=== PATIENT | male | born 1985 | race Caucasian/White ===

== ENCOUNTER 2021-04-15 12:25 | Emergency (ER) | payer SELFPAY ==
[~2021-04-15] VITALS: Ht 182 cm; Wt 82.0 kg
[2021-04-15 12:46] LABS: BASOPHILS % (AUTO) 1 % (0-10); EOSINOPHILS # (AUTO) 0.1 10^3/uL (0.0-0.3); EOSINOPHILS % (AUTO) 1 % (0-10); HEMATOCRIT 46 % (40-54); HEMOGLOBIN 15.7 g/dL (13.3-17.7); LYMPHOCYTES # (AUTO) 1.3 10^3/uL (1.0-4.0); LYMPHOCYTES % (AUTO) 30 % (12-44); MEAN CORPUSCULAR HEMOGLOBIN 32 pg (25-34); MEAN CORPUSCULAR HGB CONC 34 g/dL (32-36); MEAN CORPUSCULAR VOLUME 95 fL (80-99); MEAN PLATELET VOLUME 9.4 fL (9.0-12.2); MONOCYTES # (AUTO) 0.6 10^3/uL (0.0-1.0); MONOCYTES % (AUTO) 13 % (0-12); NEUTROPHILS # (AUTO) 2.4 10^3/uL (1.8-7.8); NEUTROPHILS % (AUTO) 55 % (42-75); PLATELET COUNT 181 10^3/uL (130-400); WHITE BLOOD COUNT 4.3 10^3/uL (4.3-11.0)
[2021-04-15 12:57] LABS: ALBUMIN 4.3 GM/DL (3.2-4.5)
[2021-04-15 12:59] LABS: CALCIUM 9.2 MG/DL (8.5-10.1)
[2021-04-15] MEDS ORDERED: HOLD METFORMIN - RECEIVED CONTRAST 20 ML VIAL IV SCH (13:00)
[2021-04-15] MEDS ORDERED: IOHEXOL 350 MG/ML 100 ML (OMNIPAQUE 350) VIAL IV ONE (13:00)
[2021-04-15] MEDS ORDERED: NS 100 ML (IVPB) BAG IV ONE (13:00)
[2021-04-15 13:02] LABS: BILIRUBIN,TOTAL 0.7 MG/DL (0.1-1.0)
[2021-04-15 13:04] LABS: CREATININE SERUM 0.91 MG/DL (0.60-1.30)
--- NOTE | 2021-04-15 13:15 | ED Abdominal Pain ---
General Chief Complaint: Abdominal/GI Problems Stated Complaint: BULGE IN ABD/POSS HERNIA/DISCOLORATION ON ABD Source of Information: Patient Exam Limitations: No Limitations (CARLOZ MEZA APRN) History of Present Illness Date Seen by Provider: Apr 15, 2021 Time Seen by Provider: 12:30 Initial Comments To ER with a bulge in the right lower abdomen intermittently. He has been able to push this back in on his own. He has had some slight trouble with passing gas recently but has been having normal bowel movements and is without vomiting. Timing/Duration: 1-2 Days Severity/Quality: Moderate Location: RLQ Radiation: No Radiation Activities at Onset: None Associated Symptoms: Denies Symptoms (CARLOZ MEZA APRN) Allergies and Home Medications Allergies Coded Allergies: Penicillins (Verified Allergy, Unknown, 04/23/15) Patient Home Medication List Home Medication List Reviewed: Yes (CARLOZ MEZA APRN) Review of Systems Review of Systems Constitutional: see HPI EENTM: See HPI Respiratory: No Symptoms Reported Gastrointestinal: See HPI Genitourinary: No Symptoms Reported Musculoskeletal: no symptoms reported Skin: no symptoms reported Psychiatric/Neurological: No Symptoms Reported Endocrine: No Symptoms Reported Hematologic/Lymphatic: No Symptoms Reported (Yes) (CARLOZ MEZA APRN) Past Cwoctwg-Jxbkhf-Uwaezr Hx Patient Social History Tobacco Use?: Yes Tobacco type used: Cigarettes Smoking Status: Current Everyday Smoker Substance use?: No Alcohol Use?: No Pt feels they are or have been: No (CARLOZ MEZA APRN) Seasonal Allergies Seasonal Allergies: No (CARLOZ MEZA APRN) Past Medical History Adenoidectomy, Tonsillectomy Reproductive Disorders: No (CARLOZ MEZA APRN) Physical Exam Vital Signs Vital Signs - First Documented 04/15/21 12:33 Temp 36.9 Pulse 87 Resp 18 B/P (MAP) 129/85 (100) Pulse Ox 99 (CARMELA,GATITO K DO) Vital Signs Capillary Refill : (CARLOZ MEZA APRN) Height/Weight/BMI Height: 5'11" Weight: 145lbs. oz. 65.354530pk; BMI Method: General Appearance: WD/WN, no apparent distress Respiratory: no respiratory distress, no accessory muscle use Gastrointestinal: normal bowel sounds, soft, spleenomegaly (no palpable bulge) Extremities: normal range of motion, non-tender Neurologic/Psychiatric: alert, normal mood/affect, oriented x 3 Skin: normal color, warm/dry (CARLOZ MEZA APRN) Progress/Results/Core Measures Results/Orders Lab Results Laboratory Tests Test 04/15/21 12:38 Range/Units White Blood Count 4.3 4.3-11.0 10^3/uL Red Blood Count 4.89 4.30-5.52 10^6/uL Hemoglobin 15.7 13.3-17.7 g/dL Hematocrit 46 40-54 % Mean Corpuscular Volume 95 80-99 fL Mean Corpuscular Hemoglobin 32 25-34 pg Mean Corpuscular Hemoglobin Concent 34 32-36 g/dL Red Cell Distribution Width 12.5 10.0-14.5 % Platelet Count 181 130-400 10^3/uL Mean Platelet Volume 9.4 9.0-12.2 fL Immature Granulocyte % (Auto) 0 % Neutrophils (%) (Auto) 55 42-75 % Lymphocytes (%) (Auto) 30 12-44 % Monocytes (%) (Auto) 13 H 0-12 % Eosinophils (%) (Auto) 1 0-10 % Basophils (%) (Auto) 1 0-10 % Neutrophils # (Auto) 2.4 1.8-7.8 10^3/uL Lymphocytes # (Auto) 1.3 1.0-4.0 10^3/uL Monocytes # (Auto) 0.6 0.0-1.0 10^3/uL Eosinophils # (Auto) 0.1 0.0-0.3 10^3/uL Basophils # (Auto) 0.0 0.0-0.1 10^3/uL Immature Granulocyte # (Auto) 0.0 0.0-0.1 10^3/uL Sodium Level 138 135-145 MMOL/L Potassium Level 4.0 3.6-5.0 MMOL/L Chloride Level 106 98-107 MMOL/L Carbon Dioxide Level 24 21-32 MMOL/L Anion Gap 8 5-14 MMOL/L Blood Urea Nitrogen 17 7-18 MG/DL Creatinine 0.91 0.60-1.30 MG/DL Estimat Glomerular Filtration Rate 95 BUN/Creatinine Ratio 19 Glucose Level 72 70-105 MG/DL Calcium Level 9.2 8.5-10.1 MG/DL Corrected Calcium 9.0 8.5-10.1 MG/DL Total Bilirubin 0.7 0.1-1.0 MG/DL Aspartate Amino Transf (AST/SGOT) 42 H 5-34 U/L Alanine Aminotransferase (ALT/SGPT) 55 0-55 U/L Alkaline Phosphatase 112 40-136 U/L Total Protein 7.0 6.4-8.2 GM/DL Albumin 4.3 3.2-4.5 GM/DL (GATITO CASEY DO) Vital Signs/I&O 04/15/21 04/15/21 12:33 13:19 Temp 36.9 36.9 Pulse 87 87 Resp 18 18 B/P (MAP) 129/85 (100) 129/85 Pulse Ox 99 99 (GATITO CASEY DO) Departure Communication (Admissions) NAME: KAYLEN DENSON [facility] REC#: [id number] PT STATUS: REG ER : 1985 PHYSICIAN: CARLOZ MEZA APRN ADMIT DATE: 04/15/21/ER Draft Date of Exam:04/15/21 CT ABDOMEN/PELVIS W Procedure: CT abdomen and pelvis with contrast. Technique: Multiple contiguous axial images were obtained through the abdomen and pelvis after administration of intravenous contrast. Auto Exposure Controls were utilized during the CT exam to meet ALARA standards for radiation dose reduction. All CT scans use one or more of the following dose optimizing techniques: automated exposure control, MA and/or KvP adjustment based on patient size and exam type or iterative reconstruction. Indication: Right lower quadrant pain with palpable lump. Comparison: None. Discussion: The lung bases are well-aerated. Normal heart size. No pleural or pericardial fluid. The liver, gallbladder, pancreas, stomach, spleen, and adrenal glands are unremarkable. No renal stone, mass, hydronephrosis. The aorta is normal in caliber. Urinary bladder and prostate are unremarkable. The large and small bowel loops appear within normal limits. The appendix is normal. No constipation or obstruction. No hernia identified. No osseous abnormality. Impression: 1. No acute abnormality within the abdomen or pelvis. No hernia. Dictated on workstation # [id number] Dict: 04/15/21 1303 Trans: 04/15/[address] [facility] [id number] Interpreted by: CARLOS MCNULTY MD Electronically signed by: (CARLOZ MEZA APRN) Impression Primary Impression: Inguinal hernia Disposition: 01 HOME, SELF-CARE Condition: Stable Departure-Patient Inst. Decision time for Depature: 13:13 (CARLOZ MEZA APRN) Referrals: REBECA HAYNES BRETT D DO KIDO, TAKAAKI MD NO,LOCAL PHYSICIAN (PCP) Primary Care Physician Patient Instructions: Inguinal and Femoral (Groin) Hernias Add. Discharge Instructions: 1. Call one of the surgeons of your choosing tomorrow to make an appointment to be seen for follow-up, this will need surgical repair. All discharge instructions reviewed with patient and/or family. Voiced understanding. ATTENDING PHYSICIAN NOTE: I WAS PHYSICALLY PRESENT ER PHYSICIAN WHEN THIS PATIENT WAS IN ER, BUT I WAS NOT INVOLVED IN DECISION MAKING OR ANY CARE OF THIS PATIENT (GATITO CASEY DO) CARLOZ MEZA APRN Apr 15, 2021 13:15 GATITO CASEY DO Apr 17, 2021 14:54
[2021-04-15 13:19] VITALS: BP 129/85
== END 2021-04-15 13:25 | disposition home or self-care (01) ==
LOC: EDUNIT# 12:25 → ER 12:29
DX: K40.90 Unilateral inguinal hernia, without obstruction or gangrene, not specified as recurrent (principal); F17.210 Nicotine dependence, cigarettes, uncomplicated
CPT/HCPCS: 36415; 74177; 80053; 85025

== ENCOUNTER 2021-04-16 17:45 | Emergency (ER) | payer SELFPAY ==
[~2021-04-16] VITALS: Ht 182 cm; Wt 81.6 kg
--- NOTE | 2021-04-16 18:19 | ED General ---
General Chief Complaint: Dizziness/Syncope Stated Complaint: DIZZY / AMS Source of Information: Patient Exam Limitations: No Limitations History of Present Illness Date Seen by Provider: Apr 16, 2021 Time Seen by Provider: 18:06 Initial Comments This is a well-appearing 35-year-old male presented to the ER via POV with complaints of feeling dizzy and tingling in his face approximate 30 minutes prior to arrival. States that he had a prior episode similar approximately weeks ago when he presented to the emergency department at [facility]. States that he was told his symptoms are caused from a varicocele in his groin. He states his symptoms are completely resolved at this time however since this is the second episode he wanted to have further evaluation. He is concerned that the inguinal hernia he has is cutting off circulation to his brain. Allergies and Home Medications Allergies Coded Allergies: Penicillins (Verified Allergy, Unknown, 04/23/15) Past Hfkgxwu-Mcqjaz-Zsbhid Hx Seasonal Allergies Seasonal Allergies: No Past Medical History Adenoidectomy, Tonsillectomy Reproductive Disorders: No Physical Exam Vital Signs Vital Signs - First Documented 04/16/21 18:00 Temp 36.7 Pulse 77 Resp 16 B/P (MAP) 110/81 (91) Pulse Ox 99 Capillary Refill : Height, Weight, BMI Height: 5'11" Weight: 145lbs. oz. 65.017524px; 24.00 BMI Method: Progress/Results/Core Measures Suspected Sepsis SIRS Temperature: Pulse: Respiratory Rate: Laboratory Tests 04/16/21 18:17: White Blood Count 4.9 Blood Pressure / Mean: Laboratory Tests 04/16/21 18:17: Creatinine 1.23, Platelet Count 210, Total Bilirubin 0.8 Results/Orders Lab Results Laboratory Tests Test 04/16/21 18:17 04/16/21 18:23 04/16/21 18:26 Range/Units White Blood Count 4.9 4.3-11.0 10^3/uL Red Blood Count 4.85 4.30-5.52 10^6/uL Hemoglobin 15.4 13.3-17.7 g/dL Hematocrit 45 40-54 % Mean Corpuscular Volume 93 80-99 fL Mean Corpuscular Hemoglobin 32 25-34 pg Mean Corpuscular Hemoglobin Concent 34 32-36 g/dL Red Cell Distribution Width 12.5 10.0-14.5 % Platelet Count 210 130-400 10^3/uL Mean Platelet Volume 9.7 9.0-12.2 fL Immature Granulocyte % (Auto) 0 % Neutrophils (%) (Auto) 58 42-75 % Lymphocytes (%) (Auto) 31 12-44 % Monocytes (%) (Auto) 10 0-12 % Eosinophils (%) (Auto) 1 0-10 % Basophils (%) (Auto) 1 0-10 % Neutrophils # (Auto) 2.9 1.8-7.8 10^3/uL Lymphocytes # (Auto) 1.5 1.0-4.0 10^3/uL Monocytes # (Auto) 0.5 0.0-1.0 10^3/uL Eosinophils # (Auto) 0.0 0.0-0.3 10^3/uL Basophils # (Auto) 0.0 0.0-0.1 10^3/uL Immature Granulocyte # (Auto) 0.0 0.0-0.1 10^3/uL Sodium Level 135 135-145 MMOL/L Potassium Level 4.2 3.6-5.0 MMOL/L Chloride Level 103 98-107 MMOL/L Carbon Dioxide Level 25 21-32 MMOL/L Anion Gap 7 5-14 MMOL/L Blood Urea Nitrogen 17 7-18 MG/DL Creatinine 1.23 0.60-1.30 MG/DL Estimat Glomerular Filtration Rate 67 BUN/Creatinine Ratio 14 Glucose Level 92 70-105 MG/DL Calcium Level 9.6 8.5-10.1 MG/DL Corrected Calcium 9.2 8.5-10.1 MG/DL Total Bilirubin 0.8 0.1-1.0 MG/DL Aspartate Amino Transf (AST/SGOT) 29 5-34 U/L Alanine Aminotransferase (ALT/SGPT) 55 0-55 U/L Alkaline Phosphatase 109 40-136 U/L Total Protein 7.3 6.4-8.2 GM/DL Albumin 4.5 3.2-4.5 GM/DL Urine Color YELLOW Urine Clarity CLEAR Urine pH 7.0 5-9 Urine Specific [place] 1.010 L 1.016-1.022 Urine Protein NEGATIVE NEGATIVE Urine Glucose (UA) NEGATIVE NEGATIVE Urine Ketones NEGATIVE NEGATIVE Urine Nitrite NEGATIVE NEGATIVE Urine Bilirubin NEGATIVE NEGATIVE Urine Urobilinogen 0.2 < = 1.0 MG/DL Urine Leukocyte Esterase NEGATIVE NEGATIVE Urine RBC (Auto) NEGATIVE NEGATIVE Urine RBC NONE /HPF Urine WBC NONE /HPF Urine Crystals NONE /LPF Urine Bacteria NEGATIVE /HPF Urine Casts NONE /LPF Urine Mucus NEGATIVE /LPF Urine Culture Indicated NO Urine Opiates Screen NEGATIVE NEGATIVE Urine Oxycodone Screen NEGATIVE NEGATIVE Urine Methadone Screen NEGATIVE NEGATIVE Urine Propoxyphene Screen NEGATIVE NEGATIVE Urine Barbiturates Screen NEGATIVE NEGATIVE Ur Tricyclic Antidepressants Screen NEGATIVE NEGATIVE Urine Phencyclidine Screen NEGATIVE NEGATIVE Urine Amphetamines Screen NEGATIVE NEGATIVE Urine Methamphetamines Screen NEGATIVE NEGATIVE Urine Benzodiazepines Screen NEGATIVE NEGATIVE Urine Cocaine Screen NEGATIVE NEGATIVE Urine Cannabinoids Screen POSITIVE H NEGATIVE Influenza Type A (RT-PCR) Not Detected Not Detecte Influenza Type B (RT-PCR) Not Detected Not Detecte SARS-CoV-2 RNA (RT-PCR) Not Detected Not Detecte My Orders Orders - JACQUELIN CORBETT REELER OPERATOR Drug Screen Stat (Urine) (04/16/21 17:54) Ua Culture If Indicated (04/16/21 17:54) Covid 19 Inhouse Test (04/16/21 18:10) Influenza A And B By Pcr (04/16/21 18:10) Cbc With Automated Diff (04/16/21 18:14) Comprehensive Metabolic Panel (04/16/21 18:14) Vital Signs/I&O 04/16/21 18:00 Temp 36.7 Pulse 77 Resp 16 B/P (MAP) 110/81 (91) Pulse Ox 99 Capillary Refill : Departure Impression Primary Impression: Dizziness Disposition: 01 HOME, SELF-CARE Condition: Improved Departure-Patient Inst. Decision time for Depature: 19:39 Referrals: NO,LOCAL PHYSICIAN (PCP/Family) Primary Care Physician Patient Instructions: Vertigo (a Type of Dizziness) (DC) Add. Discharge Instructions: Plan: 1. Establish with primary care provider of your choice. 2. If you feel dizzy, sit down immediately to prevent fainting. 3. Drink plenty of fluids. Drink enough fluids to keep your urine a pale yellow. 4. Return to ER for any new, concerning, or worsening symptoms. All discharge instructions reviewed with patient and/or family. Voiced understanding. JACQUELIN CORBETT REELER OPERATOR Apr 16, 2021 18:19
[2021-04-16 18:30] LABS: BASOPHILS % (AUTO) 1 % (0-10); EOSINOPHILS % (AUTO) 1 % (0-10); HEMATOCRIT 45 % (40-54); HEMOGLOBIN 15.4 g/dL (13.3-17.7); LYMPHOCYTES # (AUTO) 1.5 10^3/uL (1.0-4.0); LYMPHOCYTES % (AUTO) 31 % (12-44); MEAN CORPUSCULAR HEMOGLOBIN 32 pg (25-34); MEAN CORPUSCULAR HGB CONC 34 g/dL (32-36); MEAN CORPUSCULAR VOLUME 93 fL (80-99); MEAN PLATELET VOLUME 9.7 fL (9.0-12.2); MONOCYTES # (AUTO) 0.5 10^3/uL (0.0-1.0); MONOCYTES % (AUTO) 10 % (0-12); NEUTROPHILS # (AUTO) 2.9 10^3/uL (1.8-7.8); NEUTROPHILS % (AUTO) 58 % (42-75); PLATELET COUNT 210 10^3/uL (130-400); WHITE BLOOD COUNT 4.9 10^3/uL (4.3-11.0)
[2021-04-16 18:33] LABS: ALBUMIN 4.5 GM/DL (3.2-4.5)
[2021-04-16 18:34] LABS: POTASSIUM 4.2 MMOL/L (3.6-5.0)
[2021-04-16 18:34] LABS: BILIRUBIN,URINE NEGATIVE (NEGATIVE); CLARITY,URINE CLEAR; COLOR,URINE YELLOW; GLUCOSE, URINE (UA) NEGATIVE (NEGATIVE); KETONES,URINE NEGATIVE (NEGATIVE); LEUKOCYTE ESTERASE ,URINE NEGATIVE (NEGATIVE); NITRITE,URINE NEGATIVE (NEGATIVE); PROTEIN,URINE NEGATIVE (NEGATIVE)
[2021-04-16 18:35] LABS: CALCIUM 9.6 MG/DL (8.5-10.1)
[2021-04-16 18:36] LABS: TOTAL PROTEIN 7.3 GM/DL (6.4-8.2)
[2021-04-16 18:38] LABS: BILIRUBIN,TOTAL 0.8 MG/DL (0.1-1.0)
[2021-04-16 18:40] LABS: CREATININE SERUM 1.23 MG/DL (0.60-1.30)
[2021-04-16 18:49] LABS: AMPHETAMINE SCREEN, URINE NEGATIVE (NEGATIVE); BARBITURATE SCREEN URINE NEGATIVE (NEGATIVE); BENZODIAZEPINES SCREEN URINE NEGATIVE (NEGATIVE); CANNABINOID SCREEN, URINE POSITIVE (NEGATIVE); COCAINE SCREEN URINE NEGATIVE (NEGATIVE); METHADONE STAT NEGATIVE (NEGATIVE); METHAMPHETAMINE SCREEN URINE S NEGATIVE (NEGATIVE); OPIATE SCREEN URINE NEGATIVE (NEGATIVE); OXYCODONE STAT NEGATIVE (NEGATIVE); PROPOXYPHENE STAT NEGATIVE (NEGATIVE); TRICYCLIC ANTIDEPRESSANTS SCRE NEGATIVE (NEGATIVE)
[2021-04-16 18:55] LABS: BACTERIA,URINE NEGATIVE /HPF
[2021-04-16 20:01] VITALS: BP 120/88
== END 2021-04-16 20:01 | disposition home or self-care (01) ==
LOC: EDUNIT# 17:45 → ER 17:46
DX: R42 Dizziness and giddiness (principal); Z20.822 Contact with and (suspected) exposure to COVID-19
CPT/HCPCS: 36415; 80053; 80306; 81000; 85025; 87636; 93005

== ENCOUNTER 2021-06-15 05:36 | Outpatient (CLI) | payer OTHER ==
[~2021-06-15] VITALS: Ht 182.9 cm; Wt 85.0 kg
[2021-06-18] MEDS ORDERED: CIPR-225 PO (12:27)
[2021-06-18] MEDS ORDERED: NF-CIPROHC OT (12:27)
[2021-06-18] MEDS ORDERED: CETI10CA PO (12:40)
== END 2021-06-18 12:50 | disposition home or self-care (01) ==
LOC: PREOP 05:36
PROVIDERS: ATTEND Surgery
DX: Z01.818 Encounter for other preprocedural examination (principal)

== ENCOUNTER 2021-06-21 07:38 | Day surgery (SDC) | payer OTHER ==
[~2021-06-21] VITALS: Ht 182.9 cm; Wt 85.0 kg
[2021-06-21] VITALS (10 sets, daily range): BP systolic 83–115; BP diastolic 47–80
[~2021-06-21 07:38] MED LIST: CETI10CA PO; CIPR-225 PO; NF-CIPROHC OT
[2021-06-21] MEDS ORDERED: LIDOCAINE/EPI 1%-1:100,000 (XYLOCAINE) 20ML ONE (07:40)
[2021-06-21] MEDS ORDERED: LACTATED RINGERS 1,000 ML IV PRN (07:45)
[2021-06-21] MEDS ORDERED: CLINDAMYCIN 600 MG/50 ML IVPB 50 ML IV ONE ×2 (08:00)
[2021-06-21] MEDS ORDERED: proPOfol 200 MG/20 ML (DIPRIVAN) VIAL IV ONE (08:35)
[2021-06-21] MEDS ORDERED: LIDOCAINE PF 2% 5 ML (XYLOCAINE) VIAL ONE (08:35)
[2021-06-21] MEDS ORDERED: SEVOFLURANE (ULTANE) 15 ML INHAL SOLN ONE ×2 (08:35→09:01)
[2021-06-21] MEDS ORDERED: fentaNYL INJ 100 MCG/2 ML AMP ONE (08:35)
[2021-06-21] MEDS ORDERED: ONDANSETRON 4 MG/2 ML (SDV) Z0FRAN ONE (08:35)
[2021-06-21] MEDS ORDERED: ROCURONIUM 10 MG/ML 5 ML SYRINGE IV ONE (08:35)
[2021-06-21] MEDS ORDERED: MIDAZOLAM 2 MG/2 ML (VERSED) VIAL ONE (08:35)
--- NOTE | 2021-06-21 09:35 | Progress Note-Post Operative ---
Post-Operative Progess Note Surgeon (s)/Button Inspector (s) Surgeon ZAYDA VÁZQUEZ DO Button Inspector: Dr. Patel to assist in retraction dissection and closure. Pre-Operative Diagnosis right inguinal hernia Post-Operative Diagnosis right indirect inguinal hernia, cord lipoma Procedure & Operative Findings Date of Procedure 06/21/21 Procedure Performed/Findings PROCEDURE: Open right inguinal hernia repair and excision cord lipoma. COMPLICATIONS: None. INDICATIONS: The patient is a 35, male male with a inguinal hernia. He understands risks and benefits of procedure and wished to proceed with procedure. Consent was signed in the chart. DESCRIPTION OF PROCEDURE: The patient was taken to the operating suite, was prepped and draped in sterile fashion. Surgical pause was performed. Local anesthetic was infiltrated in the lower quadrant. Incision was made and cautery used to dissect down to the external oblique, which was then opened down through the external ring. The spermatic cord was then dissected around. A Dilshad drain was placed around it and there was no direct defect present. A indirect hernia present which was then dissected off of spermatic cord. The hernia sac was then twisted and suture ligated. Cord lipoma was excised off of cord using cautery. Using ProGrip mesh, this was secured at Usman's ligament and then incorporated around the spermatic cord and placed under the external oblique. Hemostasis was achieved. The external oblique was then closed recreating the external ring and then the subcutaneous tissues were then reapproximated using 3-0 Vicryl and skin was then closed using 4-0 Monocryl in a subcuticular fashion. The abdomen was then washed and dried and Skin Affix was placed over the incision. The patient tolerated procedure well without any complications and taken to recovery room in stable condition. Anesthesia Type general Estimated Blood Loss Estimated blood loss (mL): minimal Specimens/Packing Specimens Removed hernia sac, cord lipoma ZAYDA VÁZQUEZ DO Jun 21, 2021 09:35
[2021-06-21] MEDS ORDERED: ACHD5005 PO (09:37)
[2021-06-21] MEDS ORDERED: DOCU-143 PO (09:37)
--- NOTE | 2021-06-21 09:39 | Discharge Inst-Simple/Standard ---
Discharge Inst-Standard Discharge Medications New, Converted or Re-Newed RX: Transmitted to Pharmacy Patient Instructions/Follow Up Plan of Care/Instructions/FU: 3 weeks Jethro Activity as Tolerated: No Discharge Diet: Regular Diet Other Inst to Patient Follow up Appt: Make appointment for 3 week. Instructions: No lifting greater than 10 pounds. No strenuous activity. May shower in 24 hours, no tub bath or soaking. Use incentive spirometer at home as directed. No Smoking Skin/Wound Care: You have special glue over your incision that will fall off on it's own. Symptoms to Report: Appetite Changes, Extremity Discoloration, Numbness/Tingling, Swelling Increased, Bleeding Excessive, Eyesight Changes, Pain Increased, Urine Color Change, Constipation(Persistent), Fever over 101 degree F, Pain/Pressure in chest, Urinating Difficulty, Cough Up/Vomit Blood, Heart Beat Irreg/Pounding, Pain/Pressure in jaw, Vaginal Bleeding Increase, Cramps in feet or legs, Lightheadedness, Pain/Pressure in shoulder, Diarrhea(Persistent), Memory Changes Suddenly, Questions/Concerns, Weight gain consecutive days, Dizziness/Fainting, Nausea/Vomiting, Shortness of Breath, Weight gain over 2 pounds If questions or concerns contact your physician Or seek help at emergency department. ZAYDA VÁZQUEZ DO Jun 21, 2021 09:39
[2021-06-21] MEDS ORDERED: fentaNYL INJ 100 MCG/2 ML AMP IVP ONE (09:45)
[2021-06-21] MEDS ORDERED: morphine INJ 10 MG/ML 1ML (SYR OR VIAL) IVP ONE (09:45)
[2021-06-21] MEDS ORDERED: MEPERIDINE (DEMEROL) INJ 50 MG/ML IVP ONE (09:45)
[2021-06-21] MEDS ORDERED: ONDANSETRON 4 MG/2 ML (SDV) Z0FRAN IVP PRN (09:45)
--- NOTE | 2021-06-21 09:45 | Anesthesia-General Post-Op ---
General Patient Condition Mental Status/LOC: Same as Preop Cardiovascular: Satisfactory Nausea/Vomiting: Absent Respiratory: Satisfactory Pain: Controlled Complications: Absent Post Op Complications Complications None Follow Up Care/Instructions Patient Instructions None needed. Anesthesia/Patient Condition Patient Condition Patient is doing well, no complaints, stable vital signs, no apparent adverse anesthesia problems. No complications reported per nursing. YAW POLANCO CRNA Jun 21, 2021 09:45
[2021-06-21] MEDS ORDERED: HYDROcodone/APAP 5 MG/325 MG (LORTAB) TAB ONE (11:28)
[2021-06-21] MEDS ORDERED: HYDROcodone/APAP 5 MG/325 MG (LORTAB) TAB PO ONE (11:45)
== END 2021-06-21 12:33 ==
LOC: SDC 07:38
PROVIDERS: ATTEND Surgery
DX: K40.90 Unilateral inguinal hernia, without obstruction or gangrene, not specified as recurrent (principal); D17.6 Benign lipomatous neoplasm of spermatic cord; F17.210 Nicotine dependence, cigarettes, uncomplicated; I86.1 Scrotal varices; Z79.899 Other long term (current) drug therapy; Z79.2 Long term (current) use of antibiotics
CPT/HCPCS: 49505; 87081; C1781